=== PATIENT | male | born 1970 | race Caucasian/White ===

== ENCOUNTER 2021-04-01 06:14 | Day surgery (SDC) | payer SELFPAY ==
[~2021-04-01] VITALS: Ht 177.8 cm; Wt 96.3 kg
[~2021-04-01 06:14] MED LIST: HYDROmorphone 2 MG/ML INJ. IVP PRN; IBUP200T58 PO; IV RINGERS,LACTATED 1000ML 1,000 ML IV SCH; MORPHINE SULFATE 2 MG/ML INJ. IVP PRN; PROCHLORPERAZINE 10 MG/2 ML VIAL. IVP PRN; fentaNYL PF VIAL 100 MCG/2 ML VIAL IVP PRN
[2021-04-01 06:45] VITALS: BP 139/89
[2021-04-01] MEDS ORDERED: ONDANSETRON PF 4 MG/2 ML VIAL. ONE (06:53)
[2021-04-01] MEDS ORDERED: LIDOCAINE 2% PF 5 ML VIAL. ONE (06:53)
[2021-04-01] MEDS ORDERED: DEXAMETHASONE SOD PHOS 4 MG/ML VIAL ONE (06:53)
[2021-04-01] MEDS ORDERED: PROPOFOL 10 MG/ML (20ML) VIAL. IV ONE (06:53)
[2021-04-01] MEDS ORDERED: SEVOFLURANE 61 TO 120 MINUTES. IH ONE (06:53)
[2021-04-01] MEDS ORDERED: fentaNYL PF VIAL 100 MCG/2 ML VIAL ONE (06:54)
[2021-04-01] MEDS ORDERED: ROCURONIUM 50 MG/5 ML VIAL. ONE (06:54)
[2021-04-01] MEDS ORDERED: MIDAZOLAM HCL/PF 2 MG/2 ML VIAL. ONE (06:54)
[2021-04-01] MEDS ORDERED: NEOSTIGMINE METHYLSULFATE 5 MG/5 ML SYRINGE. ONE (06:55)
[2021-04-01] MEDS ORDERED: GLYCOPYRROLATE 1 MG/5 ML VIAL. ONE (06:55)
[2021-04-01] MEDS ORDERED: SUCCINYLCHOLINE 200 MG/10 ML VIAL. ONE (06:56)
[2021-04-01] MEDS ORDERED: BUPIVACAINE MPF 0.5% 30 ML VIAL. ONE (07:07)
[2021-04-01] MEDS ORDERED: LIDOCAINE 1% PF 30 ML VIAL. ONE (07:07)
[2021-04-01] MEDS ORDERED: KETAMINE HCL IN NACL, ISO-OSM 50 MG/5 ML SYRINGE ONE (07:41)
[2021-04-01] MEDS ORDERED: HYDROmorphone 2 MG/ML INJ. ONE (08:44)
[2021-04-01] MEDS ORDERED: ePHEDrine PF IN SALINE 50 MG/10 ML SYRINGE. IV ONE (09:18)
[2021-04-01] MEDS ORDERED: OXYC-325 PO (09:35)
--- NOTE | 2021-04-01 09:36 | DISCH ---
DISCHARGE INSTRUCTIONS Condition on Discharge Condition on Discharge: Stable Activity After Discharge Activity Instructions for Disc: Other, see below Bathing Instructions: Shower-keep dressing dry Weight Bearing Status after Di: Non weight bearing Diet after Discharge Diet after Discharge: Regular Wound Incision Care Wound/Incision Care: Ice to area for comfort, Keep wound/cast CDI, Do not change dressing Contacting the after DC Call your doctor for: Concerns you may have Follow-Up Follow up with: Bud in 2wks KETURAH EDMONDS II, MD Apr 01, 2021 09:36
--- NOTE | 2021-04-01 09:48 | PDOC4 ---
Operative Note Operative Note Date of procedure: April 01, 2021 Surgeon: Candelario Edmonds Hand Bunch Maker: Luis E Dillard Preoperative diagnosis: Complete left distal biceps rupture Postop diagnosis: Same Procedure performed: Open left distal biceps repair Anesthesia: General Complications: None Findings: Acute rupture Blood loss: 25 mL Tourniquet time: Less than 90 minutes Components inserted: [employer] Endobutton Reason for procedure: Patient is a very pleasant 50-year-old gentleman who I had seen in my outpatient orthopedic surgery clinic with complaints of pain and deformity around his left anterior elbow. Please see my outpatient note for full details. I had a discussion of the risks, benefits, and alternatives to the above surgery with him and he elected to proceed. Description of procedure: Patient was greeted in the preoperative area by myself and correct extremity was verified and marked. He is taken to the operative suite and antibiotics are started as he was brought back. Once in the operating room he was transferred gently spine to the operating table then secured to the bed with all pressure points padded. After this, he underwent successful induction of a general anesthetic. We then proceeded to prep and drape left upper extremity in her usual sterile fashion and conducted standard preoperative timeout. A sterile tourniquet was applied to his left upper arm. The extremity was exsanguinated with an Esmarch and tourniquet insufflated 250 mmHg. Made a transverse incision distal to his antecubital fossa and incise skin with a scalpel, dissected subcutaneous tissue with tenotomy's. Identified a large vein and protected this. I then worked proximally after incising fascia in line with the skin incision, with a combination of blunt dissection, and tenotomy's, using bipolar electrocautery for small venous bleeders. Identified the stump of his tendon, clamped it with an Allis and pulled distal traction, I added another Allis and was able to mobilize it. I dissected adherent subcutaneous tissue free from the tendon, and had good mobility. I then placed a #2 ultra braid and locked running fashion to give me 2 limbs for repair. After this, I took the tendon back to the subcutaneous tissue and proceeded to dissect with tenotomy's and a hemostat the interval between his mobile wad and venous structures. There were a couple veins proceeding transversely across the operative field and these were clamped with vascular clips and transected with tenotomy's. Identified his radial tuberosity and placed Hohmann retractors, using very light traction throughout the case on these, I then used a Beath pin and advanced this bicortically. I then used the Endobutton reamer bicortically. I then reposition the Beath pin and after sizing my tendon stump, drilled the corresponding size, a 9.5 mm. After this I placed the Beath pin out through skin and shuttled these traction sutures through. I had attached an Endobutton as a washer to the suture limbs of my ultra braid suture that was secured to the biceps tendon. I then was pulling traction and the knots pulled free, therefore I had to add another ultra braid sutures through in a locked running fashion and tied it more securely this time. I then shuttled the traction sutures through using a Beath pin and docked the tendon confirming appropriate toggle on the far cortex of my Endobutton. I then thoroughly irrigated the operative field, it should be noted that after each drilling and reaming we had also taken care to remove any loose bony debris and irrigate. After this final irrigation, tourniquet was let down, there is a small amount of venous oozing and small amount of oozing from the bone as well. We then closed the subcutaneous tissue with inverted interrupted 2-0 Vicryl followed by running 3-0 Monocryl in a buried subcuticular fashion for skin. Local anesthetic was infiltrated in the periincisional soft tissues. The arm was cleansed and dried. Prior to wound closure all counts correct x2. No complications. At the conclusion, he was placed into a well-padded posterior splint at slightly less than 90 degrees of flexion. He was awakened from anesthesia and transferred gently spine to the recovery room cart and taken to PACU in stable and extubated condition. Postop erative plan is to discharge him home. I will see him back in 2 weeks, sooner should a problem arise. CANDELARIO EDMONDS II, MD Apr 01, 2021 09:48
[2021-04-01] MEDS ORDERED: oxyCODONE/APAP 5/325 1 TAB TABLET PO ONE (11:00)
[2021-04-01 11:49] VITALS: BP 133/89
== END 2021-04-01 13:00 | disposition home or self-care (01) ==
LOC: SURG 06:14
PROVIDERS: ATTEND Orthopaedic Surgery Sports Medicine
DX: S46.212A Strain of muscle, fascia and tendon of other parts of biceps, left arm, initial encounter (principal); Z79.899 Other long term (current) drug therapy; Z98.890 Other specified postprocedural states; X58.XXXA Exposure to other specified factors, initial encounter; Y93.89 Activity, other specified; Y92.89 Other specified places as the place of occurrence of the external cause; Y99.8 Other external cause status
CPT/HCPCS: 24342; A4364; A4930; A6402; A6449; A6450; C1713; J0330; J0690; J1100; J1170; J2250; J2405; J2704; J2710; J3010; J3490; A4452